=== PATIENT | female | born 1950 | race Caucasian/White ===

== ENCOUNTER → 2016-05-13 | Outpatient (CLI) | payer OTHER ==
[~2016-05-13] MED LIST: ALLEVIATE PO; AMLO-110 PO; ATOR-24 PO; BACL10TA PO; CHOL100010 PO; CLON1TAB3 PO; CPXI SC; FLUO20CA35 PO; MULT-506 PO; NITR-5 PO
== END | disposition home or self-care (01) ==
LOC: C.LABSPEC 17:35
PROVIDERS: ATTEND Nurse Practitioner Family
DX: N39.0 Urinary tract infection, site not specified (principal)

== ENCOUNTER → 2016-05-27 | Outpatient (CLI) | payer OTHER ==
[2016-05-27 18:06] LABS: URINE APPEARANCE CLEAR (CLEAR); URINE BILIRUBIN NEG (NEG); URINE COLOR YELLOW; URINE NITRITE NEG (NEG); URINE PH 5.5 (4.5-7.5); URINE SPECIFIC GRAVITY 1.006 (1.000-1.030); UROBILINOGEN NEG (NEG); ZZURINE CULT IF INDIC CATH NO
[2016-05-27 18:14] LABS: MANUAL MICROSCOPIC REQUIRED? NO; REVIEW REQ? NO
== END | disposition home or self-care (01) ==
LOC: C.LABPVFM 07:39
PROVIDERS: ATTEND Nurse Practitioner Family
DX: N39.0 Urinary tract infection, site not specified (principal)

== ENCOUNTER → 2016-09-04 | Outpatient (CLI) | payer OTHER ==
[2016-09-04 12:55] LABS: ALT/SGPT 26 U/L (12-78); BLOOD UREA NITROGEN 11 mg/dl (7-18); BUN/CREATININE RATIO 15.7 (10-20); CARBON DIOXIDE 29 mmol/L (21-32); CHLORIDE 111 mmol/L (98-107); CHOLESTEROL 192 mg/dl (0-200); CREATININE 0.69 mg/dl (0.60-1.20); GLUCOSE 81 mg/dl (70-99); POTASSIUM 4.1 mmol/L (3.5-5.1); SODIUM 146 mmol/L (136-145); TRIGLYCERIDES 124 mg/dl (0-150); VERY LOW DENSITY LIPOPROT CALC 25 mg/dl
[2016-09-04 12:58] LABS: ALKALINE PHOSPHATASE 102 U/L (45-117); AST/SGOT 16 U/L (15-37); CHOLESTEROL/HDL RATIO 2.6; HDL CHOLESTEROL 75 mg/dl; LDL CHOLESTEROL CALCULATED 92 mg/dl
[2016-09-04 13:02] LABS: CALCIUM 8.9 mg/dl (8.5-10.1)
== END | disposition home or self-care (01) ==
LOC: C.LABPVFM 09:28
PROVIDERS: ATTEND Family Medicine
DX: G35 Multiple sclerosis (principal); E78.5 Hyperlipidemia, unspecified; I10 Essential (primary) hypertension; F41.8 Other specified anxiety disorders; R53.82 Chronic fatigue, unspecified

== ENCOUNTER → 2016-09-09 | Outpatient (CLI) | payer OTHER | END | disposition home or self-care (01) | LOC: C.LABPVFM 14:49 | PROVIDERS: ATTEND Family Medicine | DX: Z11.59 Encounter for screening for other viral diseases (principal); E55.9 Vitamin D deficiency, unspecified ==

== ENCOUNTER → 2016-09-30 | Outpatient (CLI) | payer OTHER ==
--- NOTE | 2016-09-30 15:18 | MAMMOGRAPHY REPORT ---
BILATERAL DIGITAL SCREENING MAMMOGRAM WITH CAD: 09/30/2016 CLINICAL HISTORY: Routine screening. Patient has no complaints. TECHNIQUE: Bilateral CC and MLO views were obtained. Current study was also evaluated with a Compute r Aided Detection (CAD) system. COMPARISON: Comparison is made to exams dated: 09/29/2015 mammogram, 09/28/2014 mammogram, 09/30/2013 mamm ogram, 09/30/2013 ultrasound, 09/27/2013 mammogram, and 09/25/2012 mammogram - [facility]. BREAST COMPOSITION: There are scattered areas of fibroglandular density in both breasts. FINDINGS: There is minimal vascular calcification in the breasts. Stable asymmetry in the superior r ight breast. No suspicious mass, architectural distortion or cluster of microcalcifications is seen. IMPRESSION: ACR BI-RADS CATEGORY 1: NEGATIVE There is no mammographic evidence of malignancy. A 1 year screening mammogram is recommended. The pa tient will receive written notification of the results. Approximately 10% of breast cancers are not detected with mammography. A negative mammographic report should not delay biopsy if a clinically suggestive mass is present. Lakesha Bocanegra M.D. ay/:09/30/2016 12:47:34 [place]: Emani CARDOSO(R)(M), [facility] letter sent: Normal 1/2 BI-RADS Code: ACR BI-RADS Category 1: Negative
== END | disposition home or self-care (01) ==
LOC: C.MAMM 11:23
PROVIDERS: ATTEND Family Medicine
DX: Z12.31 Encounter for screening mammogram for malignant neoplasm of breast (principal)

== ENCOUNTER → 2016-10-15 | Outpatient (CLI) | payer OTHER ==
--- NOTE | 2016-10-15 12:27 | DIAGNOSTIC IMAGING REPORT ---
RIGHT FOOT MIN 3 VIEWS ROUTINE HISTORY: 66 years Female M79.673 Foot pain status post dropping a 10 pound object on the dorsal midfoot. COMPARISON: Right foot radiographs 05/23/2015 TECHNIQUE: 3 views of the right foot FINDINGS: Hallux valgus deformity is noted with moderate degenerative changes about the first metatarsal-phalangeal joint. Degenerative spurring is also noted about the hallux sesamoids with the first metatarsal head. The bones are mildly demineralized. 2 mm radiodensity adjacent to lateral aspect of the mid first metatarsal the frontal view is nonspecific and may reflect a fragmented osteophyte. No acute fracture or dislocation is identified. There is prominent spurring of the calcaneus, midfoot and interphalangeal joints. There is prominent dorsal midfoot soft tissue swelling with small ankle joint effusion. IMPRESSION: 1. Prominent dorsal midfoot soft tissue swelling and small ankle joint effusion without acute fracture or dislocation identified. 2. Hallux valgus deformity with stable appearing degenerative changes about the foot as above. The above report was generated using voice recognition software. It may contain grammatical, syntax or spelling errors. Electronically signed by: Tra Martinez M.D. 10/15/2016 12:25 PM Dictated Date/Time: 10/15/2016 12:22 PM
== END | disposition home or self-care (01) ==
LOC: C.RADBC 11:09
PROVIDERS: ATTEND Psychiatry & Neurology Neurology
DX: M79.671 Pain in right foot (principal); M79.89 Other specified soft tissue disorders; M25.471 Effusion, right ankle; M20.11 Hallux valgus (acquired), right foot

== ENCOUNTER → 2017-02-25 | Outpatient (CLI) | payer OTHER ==
[2017-02-25 14:14] LABS: ALT/SGPT 24 U/L (12-78); AST/SGOT 16 U/L (15-37); BLOOD UREA NITROGEN 15 mg/dl (7-18); BUN/CREATININE RATIO 22.7 (10-20); CARBON DIOXIDE 29 mmol/L (21-32); CHLORIDE 107 mmol/L (98-107); CREATININE 0.66 mg/dl (0.60-1.20); GLUCOSE 90 mg/dl (70-99); POTASSIUM 3.7 mmol/L (3.5-5.1); SODIUM 139 mmol/L (136-145)
[2017-02-25 14:18] LABS: ALB/GLOB RATIO 1.1 (0.9-2); ALKALINE PHOSPHATASE 97 U/L (45-117); CHOLESTEROL 179 mg/dl (0-200); CHOLESTEROL/HDL RATIO 2.1; HDL CHOLESTEROL 85 mg/dl; LDL CHOLESTEROL CALCULATED 77 mg/dl; TRIGLYCERIDES 86 mg/dl (0-150); VERY LOW DENSITY LIPOPROT CALC 17 mg/dl
== END | disposition home or self-care (01) ==
LOC: C.LABPVFM 09:52
PROVIDERS: ATTEND Family Medicine
DX: E55.9 Vitamin D deficiency, unspecified (principal); M62.830 Muscle spasm of back; E78.5 Hyperlipidemia, unspecified; I10 Essential (primary) hypertension; F41.8 Other specified anxiety disorders

== ENCOUNTER → 2017-04-17 | Outpatient (CLI) | payer OTHER ==
[2017-04-17 13:00] LABS: BLOOD UREA NITROGEN 11 mg/dl (7-18); CREATININE 0.75 mg/dl (0.60-1.20)
== END | disposition home or self-care (01) ==
LOC: C.LABPVFM 08:49
PROVIDERS: ATTEND Psychiatry & Neurology Neurology
DX: Z00.00 Encounter for general adult medical examination without abnormal findings (principal); E55.9 Vitamin D deficiency, unspecified; G35 Multiple sclerosis; R41.3 Other amnesia

== ENCOUNTER → 2017-04-23 | Outpatient (CLI) | payer OTHER ==
[~2017-04-23] MED LIST changes: +GADAVIST IV PRN
--- NOTE | 2017-04-23 10:18 | DIAGNOSTIC IMAGING REPORT ---
BRAIN COMBO FOR MS HISTORY: Demyelinating disorder G35 Multiple [id number] TECHNIQUE: Multiplanar multisequence MRI of the brain was performed both before and after the intravenous administration of contrast. COMPARISON STUDY: 10/17/2015 FINDINGS: Diffusion-weighted images demonstrate a small focus of increased signal the right supraventricular area transaxial image 16. This is not present on the prior study. No additional foci of increased signal on the diffusion images is identified. FLAIR images demonstrate multiple foci of increased signal within the periventricular deep matter regions. These are unchanged in size configuration and/or number as compared to the prior study. Postcontrast images remain negative for an enhancing lesion. Ventricular system is midline. IMPRESSION: 1. Findings consistent with a demyelinating disorder unchanged in overall extent as well as number of plaques compared to the prior study. 2. Moderately active plaque right supraventricular area showing increase in signal on diffusion-weighted images, although no significant postcontrast enhancement. The above report was generated using voice recognition software. It may contain grammatical, syntax or spelling errors. Electronically signed by: Duarte Jacob M.D. 04/23/2017 10:16 AM Dictated Date/Time: 04/23/2017 10:11 AM
--- NOTE | 2017-04-23 11:03 | DIAGNOSTIC IMAGING REPORT ---
CERVICAL SPINE COMBO HISTORY: 67 years-old Female G35 Multiple [id number] follow-up study in a patient with multiple sclerosis COMPARISON: Cervical spine MRI 10/17/2015 TECHNIQUE: Multiplanar multisequence MRI the cervical spine was obtained both with and without the use of 8.5 mL Gadavist FINDINGS: The large field of view proposal specialist localizer images demonstrate no gross abnormality. Several T2 hyperintense lesions are again seen throughout the cervical spinal cord. There is a 2.5 cm lesion posterior to C2 vertebral body, previously measuring 8 mm. 13 mm lesion is seen posterior to the C6 level, previously 8 mm. Several of the lesions appear to be progressively enlarged and are confluent. There is a 9 mm lesion seen at the C4-C5 disc space which has increased in signal intensity from comparison. No definite enhancement of the lesions identified to suggest active demyelination. No focal bone marrow edema, acute fracture or subluxation of the cervical spine. C2-C3: Uncovertebral spurring with mild intervertebral disc space narrowing and facet arthrosis. Mild left foraminal narrowing. Central canal and right foramen are patent. C3-C4: Uncovertebral spurring and mild intervertebral disc space narrowing with facet arthrosis. Mild bilateral foraminal narrowing. Central canal is patent. C4-C5: 2 mm anterolisthesis C4 on C5 with mild intervertebral disc space narrowing, uncovertebral spurring and mild facet arthrosis. No significant central canal or foraminal narrowing. C5-C6: Mild to moderate intervertebral disc space narrowing with broad-based posterior disc osteophyte complex and mild facet arthrosis. There is mild central canal, mild right and mild to moderate left foraminal narrowing. C6-C7: Moderate intervertebral disc space narrowing with circumferential disc osteophyte complex and mild facet arthrosis. Findings again causes mild central canal, mild to moderate left and moderate right foraminal narrowing. C7-T1: 2 mm anterolisthesis C7 on T1. Mild uncovertebral spurring with small broad-based posterior disc bulge. Mild to moderate facet arthrosis. Central canal and neuroforamen appear patent. IMPRESSION: 1. Progressively worsened multifocal and confluent T2 hyperintense lesions throughout the cervical spinal cord is consistent with patient's reported clinical history of multiple sclerosis. No definite enhancement of the lesions identified to suggest active demyelination. 2. Multilevel discogenic degenerative changes as above. The above report was generated using voice recognition software. It may contain grammatical, syntax or spelling errors. Electronically signed by: Tra Martinez M.D. 04/23/2017 11:01 AM Dictated Date/Time: 04/23/2017 10:50 AM
== END | disposition home or self-care (01) ==
LOC: C.MRI 08:28
PROVIDERS: ATTEND Psychiatry & Neurology Neurology
DX: G35 Multiple sclerosis (principal)

== ENCOUNTER → 2017-05-29 | Outpatient (CLI) | payer OTHER ==
[~2017-05-29] MED LIST changes: -GADAVIST IV PRN
[2017-06-02 10:32] LABS: VARICELLA ZOS VIR IGM AB 1.8 (<=0.90)
== END | disposition home or self-care (01) ==
LOC: C.LABPVFM 11:47
PROVIDERS: ATTEND Physician Assistant
DX: G35 Multiple sclerosis (principal)

== ENCOUNTER → 2017-07-09 | Day surgery (SDC) | payer OTHER ==
[2017-06-26 08:42] VITALS: Ht 167.6 cm; Wt 85.9 kg
[~2017-07-09] VITALS: Ht 167.6 cm; Wt 85.9 kg
[~2017-07-09] MED LIST changes: -ALLEVIATE PO; -CHOL100010 PO; +CHOL1TAB42 PO; -CLON1TAB3 PO; -CPXI SC; -FLUO20CA35 PO; +LIDOCAINE HCL 2% 2 ML VIAL (20MG/ML) ONE; +LINA72CA PO; +MISCCAP80 PO; +OCRE300I IV; +PROPOFOL IV EMULSION 10 MG/ML 20 ML VIAL IV ONE; +SODIUM CHLORIDE 0.9% 500ML 500 ML IV ONE; +VENL150C PO
[2017-07-09 15:17] VITALS: TEMP 36.7
--- NOTE | 2017-07-09 16:09 | Endo History and Physical ---
History & Physical Date of Service: Jul 09, 2017. Chief Complaint: rectal bleeding and change in bowel habits,history of polyps Referring Physician: Dr. Downs History of Present Illness 67 yo CF who presents for colonoscopy secondary to rectal bleeding and change in bowel habits. Past Medical History Neurological Disorder, Arthritis, Fractures, Anxiety, Reflux, Gynecological Problems, Hypertension, Depression Past Surgical History Hx Cardiac Surgery: No Hx Internal Defibrillator: No Hx Pacemaker: No Hx Abdominal Surgery: Yes (TUBAL LIGATION, LAPAROSCOPY (DIAGNOSITC), JIMY W/ BSO ) Hx of Implantable Prosthesis: No Hx Post-Op Nausea and Vomiting: No Hx Cancer Surgery: No Hx Thoracic Surgery: No Hx Orthopedic: Yes (WRIST NEUROMA REMOVED) Hx Urinary Tract Surgery: No Family History Colon CA Social History Smoking Status: Never Smoker Hx Substance Use: No Hx Alcohol Use: Yes (RARELY) Allergies Coded Allergies: No Known Allergies (Verified , 06/26/17) Current Medications Reported Home Medications Medications Dose Route/Sig Max Daily Dose Days Date Category Dose Instructions Probiotic (Probiotic Product) 1 Cap Cap 1 Cap PO QAM 06/26/17 Reported Vitamin D (Cholecalciferol) 5,000 Unit Tab 5,000 Units PO 3XWK 06/26/17 Reported Linzess (Linaclotide) 72 Mcg Cap 72 Mcg PO QAM 06/26/17 Reported Ocrevus (Ocrelizumab) 300 Mg/10 Ml Inj 1 Dose IV Q6MO 06/26/17 Reported Effexor Xr (Venlafaxine Hcl) 150 Mg Cap 150 Mg PO QPM 06/26/17 Reported Norvasc (Amlodipine Besylate) 5 Mg Tab 5 Mg PO QPM 06/20/14 Reported Lioresal (Baclofen) 10 Mg Tab 10 Mg PO BID 03/29/13 Reported Lipitor (Atorvastatin Calcium) 40 Mg Tab 40 Mg PO QPM 03/29/13 Reported Macrobid (Nitrofurantoin Macrocrystals) 100 Mg Cap 100 Mg PO QAM 01/02/10 Reported TAKE DAILY W/ FOOD OR MILK Multivitamin (Multivitamins) Tab 1 Tab PO DAILY 01/02/10 Reported Vital Signs Weight (Kilograms): 85.91 Height (Feet): 5 Height (Inches): 6 Date Time Temp Pulse Resp B/P (MAP) Pulse Ox O2 Delivery O2 Flow Rate FiO2 07/09/17 15:17 36.7 84 18 159/88 (111) 97 Room Air Physical Exam General Appearance: WD/WN, no apparent distress Respiratory/Chest: Auscultation: breath sounds normal Cardiovascular: Heart Auscultation: RRR Abdomen: Bowel Sounds: normal Inspection & Palpation: soft, non-distended, no tenderness, guarding & rebound Assessment and Plan Assessment: 67 yo CF who presents for colonoscopy secondary to rectal bleeding and change in bowel habits. Plan: Proceed with colonoscopy.
--- NOTE | 2017-07-09 16:49 | Discharge Instructions ---
Endoscopy Patient Instructions Date / Procedure(s) Performed Jul 09, 2017. Colonoscopy Allergy Information Coded Allergies: No Known Allergies (Verified , 06/26/17) Discharge Date / Findings Jul 09, 2017. Rectal ulcer s/p biopsies Medication Instructions Stopped Medication(s): stopped MVI Friday,supplements since Friday OK to resume all medications today as prescribed Reported Home Medications Medications Dose Route/Sig Max Daily Dose Days Date Category Dose Instructions Probiotic (Probiotic Product) 1 Cap Cap 1 Cap PO QAM 06/26/17 Reported Vitamin D (Cholecalciferol) 5,000 Unit Tab 5,000 Units PO 3XWK 06/26/17 Reported Linzess (Linaclotide) 72 Mcg Cap 72 Mcg PO QAM 06/26/17 Reported Ocrevus (Ocrelizumab) 300 Mg/10 Ml Inj 1 Dose IV Q6MO 06/26/17 Reported Effexor Xr (Venlafaxine Hcl) 150 Mg Cap 150 Mg PO QPM 06/26/17 Reported Norvasc (Amlodipine Besylate) 5 Mg Tab 5 Mg PO QPM 06/20/14 Reported Lioresal (Baclofen) 10 Mg Tab 10 Mg PO BID 03/29/13 Reported Lipitor (Atorvastatin Calcium) 40 Mg Tab 40 Mg PO QPM 03/29/13 Reported Macrobid (Nitrofurantoin Macrocrystals) 100 Mg Cap 100 Mg PO QAM 01/02/10 Reported TAKE DAILY W/ FOOD OR MILK Multivitamin (Multivitamins) Tab 1 Tab PO DAILY 01/02/10 Reported Provider Instructions Activity Restrictions - No exercising or heavy lifting for 24 hours. - Do not drink alcohol the day of the procedure. - Do not drive a car or operate machinery until the day after the procedure. - Do not make any important decisions or sign important papers in 24 hours after the procedure. Following Day: - Return to full activity which may include returning to work/school. Diet Start your diet with liquids and light foods (jello, soup, juice, toast). Then eat your usual diet if not nauseated. Treatment For Common After Affects For mild abdominal pain, bloating, or excessive gas: - Rest - Eat lightly - Lie on right side Follow-Up Information Follow-up with Dr. Downs as scheduled Anesthesia Information What You Should Know You have had a procedure that required some medicine to reduce anxiety and discomfort. This treatment is called moderate sedation. After receiving the treatment, you may be sleepy, but you will be able to breathe on your own. The effects of the treatment may last for several hours. Follow these instructions along with Activity/Diet recommendations noted above: * Do NOT do anything where dizziness or clumsiness would be dangerous. * Rest quietly at home today, then you can be up and about tomorrow. * Have a responsible person stay with you the rest of today. * You may have had an I.V. today. If so, you may take the dressing off later today. Recommendations Call your doctor if: * Trouble breathing * Continuous vomiting for more than 24 hours * Temperature above 101 degrees * Severe abdominal pain or bloating * Pain not relieved by pain medicine ordered * There is increased drainage or redness from any incision * A large amount of rectal bleeding greater than 2-3 tablespoons. (If you had a polyp/s removed or have hemorrhoids, a small amount of blood - from the rectum is to be expected.) * You have any unanswered questions or concerns. IN THE EVENT OF A SERIOUS EMERGENCY, GO TO THE NEAREST EMERGENCY ROOM Your discharge instructions were prepared by provider Richardson Saravia. Patient Instructions Signature Page Arin Noland Patient (or Guardian) Signature/Date: I have read and understand the instructions given to me by my caregivers. Caregiver/RN/Doctor Signature/Date: The above-named patient and/or guardian has received patient instructions on this date. + Original Patient Signature Page (only) stays with chart. Please make copy for patient.
[2017-07-09 17:17] VITALS: BP 158/86; PULSE 61; O2SAT 98
--- NOTE | 2017-07-09 17:19 | Anesthesiology Progress Note ---
Anesthesia Post Op Note Date & Time Jul 09, 2017 at 17:15 Vital Signs Pain Intensity: 0 Vital Signs Past 12 Hours Date Time Temp Pulse Resp B/P (MAP) Pulse Ox O2 Delivery O2 Flow Rate FiO2 07/09/17 17:02 62 16 163/89 (113) 98 Room Air 07/09/17 16:47 68 10 143/86 (105) 100 Mask 10 07/09/17 15:17 36.7 84 18 159/88 (111) 97 Room Air Notes Mental Status: alert / awake / arousable, participated in evaluation Pt Amnestic to Procedure: Yes Nausea / Vomiting: adequately controlled Pain: adequately controlled Airway Patency, RR, SpO2: stable & adequate BP & HR: stable & adequate Hydration State: stable & adequate Anesthetic Complications: no major complications apparent Pt had small amount of clear secretions in hypopharynx at end of case which was suctioned. No issue with oxygenation in pacu. Lungs clear BL. Pt w/o SOB. pt feels ok to return home. Advised to go to ER is any concerns/issue
--- NOTE | 2017-07-10 17:26 | GI REPORT ---
Procedure Date: 07/09/2017 3:33 PM Procedure: Colonoscopy Indications: Rectal bleeding Medicines: Monitored Anesthesia Care Complications: No immediate complications. Estimated Blood Loss: Estimated blood loss: none. Procedure: Pre-Anesthesia Assessment: - Prior to the procedure, a History and Physical was performed, and patient medications and allergies were reviewed. The patient's tolerance of previous anesthesia was also reviewed. The risks and benefits of the procedure and the sedation options and risks were discussed with the patient. All questions were answered, and informed consent was obtained. Prior Anticoagulants: The patient has taken no previous anticoagulant or antiplatelet agents. ASA Grade Assessment: II - A patient with mild systemic disease. After reviewing the risks and benefits, the patient was deemed in satisfactory condition to undergo the procedure. After I obtained informed consent, the scope was passed under direct vision. Throughout the procedure, the patient's blood pressure, pulse, and oxygen saturations were monitored continuously. The On-site loaner was introduced through the anus and advanced to the cecum, identified by appendiceal orifice and ileocecal valve. The colonoscopy was performed without difficulty. The patient tolerated the procedure well. The quality of the bowel preparation was good. The ileocecal valve, appendiceal orifice, and rectum were photographed. Findings: The perianal and digital rectal examinations were normal. A single (solitary) three mm ulcer was found at the anus. No bleeding was present. Biopsies were taken with a cold forceps for histology. Non-bleeding internal hemorrhoids were found during retroflexion. The hemorrhoids were small. Impression: - A single (solitary) ulcer at the anus. Biopsied. - Non-bleeding internal hemorrhoids. Recommendation: - Resume previous diet. - Continue present medications. - Repeat colonoscopy for surveillance based on pathology results. - Return to primary care physician as previously scheduled. Richardson SaraviaDO 07/10/2017 5:26:27 PM This report has been signed electronically. Note Initiated On: 07/09/2017 3:33 PM I attest to the content of the Intraoperative Record and orders documented therein, exceptions below
== END | disposition home or self-care (01) ==
LOC: C.GI 14:36
PROVIDERS: ATTEND Internal Medicine
DX: K62.5 Hemorrhage of anus and rectum (principal); R19.4 Change in bowel habit; Z86.010 Personal history of colon polyps; K62.6 Ulcer of anus and rectum; K64.8 Other hemorrhoids; G35 Multiple sclerosis; I10 Essential (primary) hypertension; F32.9 Major depressive disorder, single episode, unspecified; Z98.51 Tubal ligation status; Z98.890 Other specified postprocedural states; Z79.899 Other long term (current) drug therapy; Z80.0 Family history of malignant neoplasm of digestive organs

== ENCOUNTER → 2017-08-18 | Day surgery (SDC) | payer OTHER ==
[~2017-08-18] VITALS: Ht 167.6 cm; Wt 85.9 kg
[~2017-08-18] MED LIST changes: -LINA72CA PO; +ONDANSETRON INJ 2 MG/ML 2 ML VIAL ONE; +POLY335019 PO; -PROPOFOL IV EMULSION 10 MG/ML 20 ML VIAL IV ONE; +PROPOFOL IV EMULSION 10 MG/ML 20 ML VIAL ONE; +SENNTAB23 PO
[2017-08-18 10:18] VITALS: Ht 167.6 cm; Wt 85.9 kg
--- NOTE | 2017-08-18 10:18 | Endo History and Physical ---
History & Physical Date of Service: August 18, 2017. Chief Complaint: Rectal ulcer Referring Physician: Dr. Downs History of Present Illness 67 yo CM who presents for Flexible sigmoidoscopy secondary to rectal ulcer. Past Medical History Neurological Disorder, Arthritis, Fractures, Anxiety, Reflux, Gynecological Problems, Hypertension, Depression Past Surgical History Hx Cardiac Surgery: No Hx Internal Defibrillator: No Hx Pacemaker: No Hx Abdominal Surgery: Yes (TUBAL LIGATION, LAPAROSCOPY (DIAGNOSITC), JIMY W/ BSO ) Hx of Implantable Prosthesis: No Hx Post-Op Nausea and Vomiting: No Hx Cancer Surgery: No Hx Thoracic Surgery: No Hx Orthopedic: Yes (WRIST NEUROMA REMOVED) Hx Urinary Tract Surgery: No Family History Colon CA Social History Smoking Status: Never Smoker Hx Substance Use: No Hx Alcohol Use: Yes (RARELY) Allergies Coded Allergies: No Known Allergies (Verified , 08/18/17) Current Medications Reported Home Medications Medications Dose Route/Sig Max Daily Dose Days Date Category Dose Instructions Miralax (Polyethylene Glycol 3350) 1 Pow Pow 17 Gm PO DAILY 08/07/17 Reported Stool Softener (Sennosides-Docusate Sodium) 1 Tab Tab 1 Tab PO BID 08/07/17 Reported Probiotic (Probiotic Product) 1 Cap Cap 1 Cap PO QAM 06/26/17 Reported Vitamin D (Cholecalciferol) 5,000 Unit Tab 5,000 Units PO 3XWK 06/26/17 Reported Ocrevus (Ocrelizumab) 300 Mg/10 Ml Inj 1 Dose IV Q6MO 06/26/17 Reported Effexor Xr (Venlafaxine Hcl) 150 Mg Cap 150 Mg PO QPM 06/26/17 Reported Norvasc (Amlodipine Besylate) 5 Mg Tab 5 Mg PO QPM 06/20/14 Reported Lioresal (Baclofen) 10 Mg Tab 10 Mg PO BID 03/29/13 Reported Lipitor (Atorvastatin Calcium) 40 Mg Tab 40 Mg PO QPM 03/29/13 Reported Macrobid (Nitrofurantoin Macrocrystals) 100 Mg Cap 100 Mg PO QAM 01/02/10 Reported TAKE DAILY W/ FOOD OR MILK Multivitamin (Multivitamins) Tab 1 Tab PO DAILY 01/02/10 Reported Vital Signs Weight (Kilograms): 85.91 Height (Feet): 5 Height (Inches): 6 Physical Exam General Appearance: WD/WN, no apparent distress Respiratory/Chest: Auscultation: breath sounds normal Cardiovascular: Heart Auscultation: RRR Abdomen: Bowel Sounds: normal Inspection & Palpation: soft, non-distended, no tenderness, guarding & rebound Assessment and Plan Assessment: 67 yo CM who presents for Flexible sigmoidoscopy secondary to rectal ulcer. Plan: Proceed with Flexible sigmoidoscopy.
--- NOTE | 2017-08-18 11:38 | Discharge Instructions ---
Endoscopy Patient Instructions Date / Procedure(s) Performed August 18, 2017. Flex Sig Allergy Information Coded Allergies: No Known Allergies (Verified , 08/18/17) Discharge Date / Findings August 18, 2017. Rectal ulcer s/p biopsies Medication Instructions OK to resume all medications today as prescribed Reported Home Medications Medications Dose Route/Sig Max Daily Dose Days Date Category Dose Instructions Miralax (Polyethylene Glycol 3350) 1 Pow Pow 17 Gm PO DAILY 08/07/17 Reported Stool Softener (Sennosides-Docusate Sodium) 1 Tab Tab 1 Tab PO BID 08/07/17 Reported Probiotic (Probiotic Product) 1 Cap Cap 1 Cap PO QAM 06/26/17 Reported Vitamin D (Cholecalciferol) 5,000 Unit Tab 5,000 Units PO 3XWK 06/26/17 Reported Ocrevus (Ocrelizumab) 300 Mg/10 Ml Inj 1 Dose IV Q6MO 06/26/17 Reported Effexor Xr (Venlafaxine Hcl) 150 Mg Cap 150 Mg PO QPM 06/26/17 Reported Norvasc (Amlodipine Besylate) 5 Mg Tab 5 Mg PO QPM 06/20/14 Reported Lioresal (Baclofen) 10 Mg Tab 10 Mg PO BID 03/29/13 Reported Lipitor (Atorvastatin Calcium) 40 Mg Tab 40 Mg PO QPM 03/29/13 Reported Macrobid (Nitrofurantoin Macrocrystals) 100 Mg Cap 100 Mg PO QAM 01/02/10 Reported TAKE DAILY W/ FOOD OR MILK Multivitamin (Multivitamins) Tab 1 Tab PO DAILY 01/02/10 Reported Provider Instructions Activity Restrictions - No exercising or heavy lifting for 24 hours. - Do not drink alcohol the day of the procedure. - Do not drive a car or operate machinery until the day after the procedure. - Do not make any important decisions or sign important papers in 24 hours after the procedure. Following Day: - Return to full activity which may include returning to work/school. Diet Start your diet with liquids and light foods (jello, soup, juice, toast). Then eat your usual diet if not nauseated. Treatment For Common After Affects For mild abdominal pain, bloating, or excessive gas: - Rest - Eat lightly - Lie on right side Follow-Up Information Follow-up with Dr. Downs as scheduled Anesthesia Information What You Should Know You have had a procedure that required some medicine to reduce anxiety and discomfort. This treatment is called moderate sedation. After receiving the treatment, you may be sleepy, but you will be able to breathe on your own. The effects of the treatment may last for several hours. Follow these instructions along with Activity/Diet recommendations noted above: * Do NOT do anything where dizziness or clumsiness would be dangerous. * Rest quietly at home today, then you can be up and about tomorrow. * Have a responsible person stay with you the rest of today. * You may have had an I.V. today. If so, you may take the dressing off later today. Recommendations Call your doctor if: * Trouble breathing * Continuous vomiting for more than 24 hours * Temperature above 101 degrees * Severe abdominal pain or bloating * Pain not relieved by pain medicine ordered * There is increased drainage or redness from any incision * A large amount of rectal bleeding greater than 2-3 tablespoons. (If you had a polyp/s removed or have hemorrhoids, a small amount of blood - from the rectum is to be expected.) * You have any unanswered questions or concerns. IN THE EVENT OF A SERIOUS EMERGENCY, GO TO THE NEAREST EMERGENCY ROOM Your discharge instructions were prepared by provider Richardson Saravia. Patient Instructions Signature Page Arin Noland Patient (or Guardian) Signature/Date: I have read and understand the instructions given to me by my caregivers. Caregiver/RN/Doctor Signature/Date: The above-named patient and/or guardian has received patient instructions on this date. + Original Patient Signature Page (only) stays with chart. Please make copy for patient.
--- NOTE | 2017-08-18 11:42 | GI REPORT ---
Patient Name: Arin Noland Procedure Date: 08/18/2017 11:03 AM Date of : 1950 Admit Type: Outpatient Age: 67 Gender: Female Attending MD: Richardson Saravia DO Procedure: Flexible Sigmoidoscopy Providers: Richardson Saravia DO Referring MD: Yudy Downs Indications: Rectal ulcer Medicines: Monitored Anesthesia Care Complications: No immediate complications. Estimated Blood Loss: Estimated blood loss: none. Procedure: Pre-Anesthesia Assessment: - Prior to the procedure, a History and Physical was performed, and patient medications and allergies were reviewed. The patient's tolerance of previous anesthesia was also reviewed. The risks and benefits of the procedure and the sedation options and risks were discussed with the patient. All questions were answered, and informed consent was obtained. Prior Anticoagulants: The patient has taken no previous anticoagulant or antiplatelet agents. ASA Grade Assessment: III - A patient with severe systemic disease. After reviewing the risks and benefits, the patient was deemed in satisfactory condition to undergo the procedure. After obtaining informed consent, the endoscope was passed under direct vision. Throughout the procedure, the patient's blood pressure, pulse, and oxygen saturations were monitored continuously. The Scope was introduced through the anus and advanced to the sigmoid colon. The flexible sigmoidoscopy was accomplished without difficulty. The patient tolerated the procedure well. The quality of the bowel preparation was good. Findings: The perianal and digital rectal examinations were normal. A single (solitary) ten mm ulcer was found in the rectum. No bleeding was present. Biopsies were taken with a cold forceps for histology. Non-bleeding internal hemorrhoids were found during retroflexion. The hemorrhoids were small. Impression: - A single (solitary) ulcer in the rectum. Biopsied. - Non-bleeding internal hemorrhoids. Recommendation: - Discharge patient to home. - Continue present medications. - Await pathology results. - Return to GI office as previously scheduled. Richardson Saravia DO 08/18/2017 11:42:04 AM This report has been signed electronically. Note Initiated On: 08/18/2017 11:03 AM Number of Addenda: 0 I attest to the content of the Intraoperative Record and orders documented therein, exceptions below {[id number]}
--- NOTE | 2017-08-18 11:57 | Anesthesia Progress Nt - [facility] ---
Anesthesia Post Op Note Date & Time August 18, 2017 at 11:57 Vital Signs Pain Intensity: 0 Vital Signs Past 12 Hours Date Time Temp Pulse Resp B/P (MAP) Pulse Ox O2 Delivery O2 Flow Rate FiO2 08/18/17 11:48 55 20 127/62 (83) 97 Room Air 08/18/17 11:31 36.6 61 20 118/68 (85) 97 Room Air 08/18/17 10:27 36.6 69 20 152/87 (108) 94 Room Air Notes Mental Status: alert / awake / arousable, participated in evaluation Pt Amnestic to Procedure: Yes Nausea / Vomiting: adequately controlled Pain: adequately controlled Airway Patency, RR, SpO2: stable & adequate BP & HR: stable & adequate Hydration State: stable & adequate Anesthetic Complications: no major complications apparent
[2017-08-18 12:03] VITALS: BP 154/90; PULSE 64; O2SAT 99
== END | disposition home or self-care (01) ==
LOC: C.GI 09:49
PROVIDERS: ATTEND Internal Medicine
DX: K62.6 Ulcer of anus and rectum (principal); K59.00 Constipation, unspecified; K64.8 Other hemorrhoids; I10 Essential (primary) hypertension; E78.5 Hyperlipidemia, unspecified; E78.01 Familial hypercholesterolemia; M19.90 Unspecified osteoarthritis, unspecified site; F32.9 Major depressive disorder, single episode, unspecified; G35 Multiple sclerosis; Z98.51 Tubal ligation status; Z98.890 Other specified postprocedural states; Z79.899 Other long term (current) drug therapy; E66.9 Obesity, unspecified

== ENCOUNTER → 2017-10-21 | Outpatient (CLI) | payer OTHER ==
[~2017-10-21] MED LIST changes: -AMLO-110 PO; +AMLO5TAB3 PO; -LIDOCAINE HCL 2% 2 ML VIAL (20MG/ML) ONE; -ONDANSETRON INJ 2 MG/ML 2 ML VIAL ONE; -PROPOFOL IV EMULSION 10 MG/ML 20 ML VIAL ONE; -SODIUM CHLORIDE 0.9% 500ML 500 ML IV ONE; -VENL150C PO; +VENL150C71 PO
--- NOTE | 2017-10-21 12:57 | DIAGNOSTIC IMAGING REPORT ---
RENAL ULTRASOUND HISTORY: UTI'S COMPARISON: Renal ultrasound 10/24/2015. FINDINGS: Right kidney: 10.8 cm. No hydronephrosis. Normal corticomedullary differentiation and cortical thickness. Left kidney: 11.2 cm. This is partially obscured by overlying bowel gas. Mild fullness within the left renal collecting system without merline hydronephrosis. Normal corticomedullary differentiation and cortical thickness. Bladder: Mild bladder wall irregularity/trabeculation. The ureteral jets are not identified during the examination. IMPRESSION: 1. Normal right kidney. 2. Mild fullness within the left renal collecting system without merline hydronephrosis. This is similar to the prior study. 3. Mild bladder wall irregularity/trabeculation. Electronically signed by: Beau Medina M.D. 10/21/2017 12:56 PM Dictated Date/Time: 10/21/2017 12:54 PM
== END | disposition home or self-care (01) ==
LOC: C.ULTR 11:29
PROVIDERS: ATTEND Urology
DX: N39.0 Urinary tract infection, site not specified (principal)

== ENCOUNTER → 2017-10-21 | Outpatient (CLI) | payer OTHER ==
[2017-10-21 12:48] LABS: BLOOD UREA NITROGEN 15 mg/dl (7-18); CREATININE 0.63 mg/dl (0.60-1.20)
== END | disposition home or self-care (01) ==
LOC: C.LAB 11:32
PROVIDERS: ATTEND Urology
DX: N39.0 Urinary tract infection, site not specified (principal)